=== PATIENT | female | born 1985 | race African-American/Black ===

== ENCOUNTER 2018-10-07 02:26 | Inpatient (IN) | payer OTHER ==
[2018-10-07] MEDS ORDERED: RINGERS SOLUTION,LACTATED 1,000 ML IV PRN ×2 (03:06→03:41)
[2018-10-07 03:17] LABS: APPEARANCE,URINE SLIGHTLY-CLOUDY; BILIRUBIN,URINE NEGATIVE (NEGATIVE); COLOR,URINE YELLOW; GLUCOSE, URINE NEGATIVE (NEGATIVE); KETONES,URINE NEGATIVE (NEGATIVE); LEUKOCYTE ESTERASE,URINE LARGE (NEGATIVE); NITRITE,URINE NEGATIVE (NEGATIVE); PROTEIN,URINE NEGATIVE (NEGATIVE); UROBILINOGEN,URINE NEGATIVE mg/dL (<2.0)
[2018-10-07 03:29] LABS: URINE AMPHETAMINES SCREEN NEGATIVE; URINE BARBITURATES SCREEN NEGATIVE; URINE BENZODIAZEPINES SCREEN NEGATIVE; URINE COCAINE SCREEN NEGATIVE; URINE METHADONE SCREEN NEGATIVE; URINE PHENCYCLIDINE SCREEN NEGATIVE
[2018-10-07 03:31] LABS: URINE MARIJUANA (THC) SCREEN UNCONFIRMED POSITIVE
[2018-10-07] MEDS ORDERED: BETAMET ACET/BETAMET NA INJ 6 MG/1 ML ONE (03:48)
[2018-10-07] MEDS ORDERED: PENICILLIN G-K 5 MILLION UNIT VIAL ONE ×2 (03:49→07:34)
[2018-10-07] MEDS ORDERED: PENICILLIN G POTASSIUM 5,000,000 UNIT in DEXTROSE 5%-WATER 100 ML IV ONE (03:50)
[2018-10-07] MEDS ORDERED: BETAMET ACET/BETAMET NA INJ 6 MG/1 ML IM ONE (03:50)
[2018-10-07 03:53] LABS: BACTERIA (WET MOUNT) 4+ BACTERIA SEEN; EPITHELIALS (WET MOUNT) 4+ EPITHELIALS SEEN; RBCS (WET MOUNT) 1+ RBCS SEEN; T.VAGINALIS (WET MOUNT) TRICHOMONAS SEEN; WBCS (WET MOUNT) 2+ WBCS SEEN; YEAST (WET MOUNT) NO YEAST SEEN
[2018-10-07] MEDS ORDERED: OXYTOCIN 10 UNIT/ML VIAL ONE (04:24)
[2018-10-07] MEDS ORDERED: MAGNESIUM SULFATE 4 GM/100 ML RTUPB IV ONE ×2 (04:24→05:00)
[2018-10-07] MEDS ORDERED: MISOPROSTOL 0.2 MG TABLET ONE (04:24)
[2018-10-07] MEDS ORDERED: OXYTOCIN/NORMAL SALINE 20 UNIT/1,000 ML RTUINJ ONE (04:25)
[2018-10-07] MEDS ORDERED: LIDOCAINE 1% INJ-PF (10 MG/ML) 30 ML SDV ONE (04:25)
[2018-10-07 04:35] LABS: HEMATOCRIT 38.3 % (36.0-47.0); HEMOGLOBIN 13.4 g/dL (12.0-15.5); MEAN CORPUSCULAR HEMOGLOBIN 29.4 pg (27.0-33.4); MEAN CORPUSCULAR HGB CONC 34.9 g/dL (32.0-36.0); MEAN CORPUSCULAR VOLUME 84 fl (80-97); PLATELET COUNT 172 10^3/uL (150-450); RED BLOOD COUNT 4.56 10^6/uL (3.72-5.28); RED CELL DISTRIBUTION WIDTH 13.9 % (11.5-14.0)
[2018-10-07 05:13] LABS: ABSOLUTE LYMPHOCYTES# (MANUAL) 2.3 10^3/uL (0.5-4.7); ABSOLUTE MONOCYTES # (MANUAL) 0.6 10^3/uL (0.1-1.4); ABSOLUTE NEUTROPHILS# (MANUAL) 18.1 10^3/uL (1.7-8.2); BASOPHILS % (MANUAL) 0 % (0-2); EOSINOPHILS % (MANUAL) 0 % (0-6); LYMPHOCYTES % (MANUAL) 11 % (13-45); MONOCYTES % (MANUAL) 3 % (3-13); PLATELET COMMENT ADEQUATE; RBC MORPHOLOGY COMMENT NORMO-CYTIC/CHROMIC; SEGMENTED NEUTROPHILS % (MAN) 86 % (42-78); TOTAL CELLS COUNTED 100
[2018-10-07 05:17] LABS: CHLAM PCR NOT DETECTED (NOT DETECT); GON PCR NOT DETECTED (NOT DETECT)
[2018-10-07] MEDS ORDERED: EPHEDRINE SULFATE INJ 50 MG/1 ML AMPULE ONE (05:25)
[2018-10-07] MEDS ORDERED: PHENYLEPHRINE HCL INJ/PF 10 MG/1 ML SDV ONE (05:25)
[2018-10-07] MEDS ORDERED: BUPIVACAINE HCL 0.25 % INJ/PF (2.5 MG/1 ML) 30 ML VIAL ONE (05:25)
[2018-10-07] MEDS ORDERED: FENTANYL/BUPIVACAINE/NS/PF 300 MCG/150 ML RTUINJ EPI ONE (05:25)
[2018-10-07] MEDS ORDERED: FENTANYL CITRATE INJ/PF 100 MCG/2 ML AMPUL ONE (05:25)
[2018-10-07] MEDS ORDERED: METRONIDAZOLE 500 MG/NS RTU 500 MG/100 ML RTUPB IV ONE ×2 (05:28→05:40)
--- NOTE | 2018-10-07 05:30 | RADIOLOGY REPORT (SQ) ---
Ultrasound OB limited on 10/07/2018 CLINICAL INDICATION: Contractions at 32 weeks six day gestation, evaluate cervical length COMPARISON: None FINDINGS: Limited sonographic imaging is performed throughout the pelvis by transabdominal approach only, both transverse and sagittal images are obtained. Single living intrauterine fetus is noted in cephalic presentation with the head low-lying in the pelvis. Positive cardiac activity is noted with a heart rate of 150 bpm. Placenta is anterior in location with no evidence of placenta previa or abruption. Normal amount of amniotic fluid is noted with amniotic fluid index of 10.6 cm. Estimated gestational age by measurements is an approximate 31 week four day gestation. Estimated weight is 3 lbs. 12 oz. +/- nine ounces which is at the 23rd percentile. No gross abnormality is noted on limited imaging. IMPRESSION: Single living intrauterine fetus in cephalic presentation.
--- NOTE | 2018-10-07 05:37 | Admission Physical ---
Datetime Report Generated by CPN: 10/07/2018 05:36 CURRENT ADMISSION Chief Complaint: Uterine Contractions Indication for Induction: Not Applicable Admit Impression : , Intrauterine ; Active Labor; Intact Membranes Admit Plan: Admit to Unit; Initiate Labor Protocol ALLERGIES Medication Allergies: No Latex: No Latex Allergies OBSTETRICAL HISTORY EDC: 11/26/2018 00:00 : 1 Para: 0 Term: 0 : 0 SAB: 0 IAB: 0 Livin Gestational Diabetes: No Rh Sensitization: No Incompetent Cervix: No KAUSHAL: No Infertility: No ART Treatment: No Uterine Anomaly: No IUGR: No Hx Previous C/S: No Macrosomia: No Hx Loss/Stillborn: No PIH: No Hx : No Placenta Previa/Abruption: No Depression/PP Depression: No PTL/PROM: Yes Post Hemorrhage: No Current Procedures: Ultrasound Obstetrical History Comments: g1-current , labor SEE RECORDS Alcohol: No Marijuana : Yes Marijuana Comments: denies but positive on urine Cocaine: No Other Illicit Drugs: No Cigarettes: Former Smoker. [id number] Cigarette Comments: patient denies, history states previous smoker and positive for marijuana MEDICAL HISTORY Diabetes: No Blood Transfusion: No Pulmonary Disease (Asthma, TB): No Breast Disease: No Hypertension: No Youth Corrections Officer Surgery: No Heart Disease: No Hosp/Surgery: No Autoimmune Disorder: No Anesthetic Complications: No Kidney Disease: No Abnormal Pap Smear: No Neuro/Epilepsy: No Psychiatric Disorders: No Other Medical Diseases: No Hepatitis/Liver Disease: No Significant Family History: No Varicosities/Phlebitis: No Trauma/Violence : No Thyroid Dysfunction: No INFECTIOUS HISTORY Gonorrhea: No Genital Herpes: No Chlamydia: No Tuberculosis: No Syphilis: No Hepatitis: No HIV/AIDS Exposure: No Rash or Viral Illness: No HPV: No Infectious History Comments: positive for trich on 10/07/18 PHYSICAL EXAM General: Normal HEENT: Normal Neurologic: Normal Thyroid: Normal Heart: Normal Lungs: Normal Breast: Normal Back: Normal Abdomen: Normal Genitourinary Exam: Normal Extremities: Normal DTRs: Normal Pelvic Type: Adequate Vital Signs: Reviewed; Within Normal Limits VAGINAL EXAM Dilatation: 3-4 Effacement: 100 MEMBRANES Membranes: Intact FETUS A EGA: 32.6 Monitoring: External US FHR- Baseline: 130s Variability: Moderate 6-25bpm Accelerations: 15X15 FHR Category: Category I Admit Comment: This 32 yo G1 presents to L_D c/o contractions. This pt is visiting family. She lives in [place]. On presentation, she was ana m q 2-3 minutes. She was diagnosed with TRICH tonight. Her UA is negative. Her cervix was /-3. She was given Betamethasone, MgS04, GBS prophylaxis, as well as tx for the STD. She is now ana m every 6 min, but very painful. I checked her at 0530 and she is now 3-4 cm with a bulging bag. I will admit pt for delivery. PLANS FOR LABOR AND DELIVERY Labor and Delivery: Placenta Request Pain Management: Epidural Feeding Preference: Breast Benefit of Breast Feed Discussed: Yes Circumcision: N/A INFORMED CONSENT Signature: with User ID: [email or web address]
[2018-10-07] MEDS ORDERED: [UNRECOGNIZED DRUG - OTHER] IV SCH (06:00)
[2018-10-07] MEDS ORDERED: METRONIDAZOLE IV SCH (06:00)
[2018-10-07] MEDS ORDERED: CONTAINER EMPTY IV SCH (06:00)
[2018-10-07] MEDS: PENICILLIN G POTASSIUM 2,500,000 UNIT in DEXTROSE 5%-WATER 50 ML IV SCH (07:54)
[2018-10-07] MEDS ORDERED: METRONIDAZOLE 500 MG TABLET ONE (09:55)
[2018-10-07] MEDS ORDERED: METRONIDAZOLE 500 MG TABLET PO ONE (10:00)
--- NOTE | 2018-10-07 11:34 | Warning Signs in Babies ---
VOD Warning Signs Datetime Report Generated by [facility]: 10/07/2018 11:34 VOD#608 -Warning Signs in Babies: Needs to be viewed. (10/07/2018 02:30:Nazario Patton RN)
--- NOTE | 2018-10-07 11:34 | Delivery Summary ---
Del Sum A-C Datetime Report Generated by CPN: 10/07/2018 11:34 DELIVERY PERSONNEL DELIVERY PERSONNEL: [id number] Delivery Doctor:: Maegan Novoa MD Labor and Delivery Nurse:: Nazario Patton RN Glue Mixer:: CLEOPATRA Haas Command And Control Systems Integrator:: Dr. Jeremías Barnes Nurse Practitioner:: FAIBOLA Joseph Nursery Nurse:: Ashley Bee Hydrogen Operator/COMMERCIAL TRAILER TRUCK DRIVER: Lubna Semar, FURNACE BRAZER Hydrogen Operator/COMMERCIAL TRAILER TRUCK DRIVER: Lubna Semar, FURNACE BRAZER MATERNAL INFORMATION Delivery Anesthesia: Epidural Medications After Delivery: Pitocin Bolus-Please Comment Meds After Delivery Comment: 20 units pitocin bolus following placenta delivery Estimated Blood Loss (ml): 200 Maternal Complications: Other Complication Details: labor, positive trich Provider Comments: Pt admitted for labor and progressed to 10 and SROM with clear fluid. NICU present at delivery. Epidural for pain control. With one push head delivered OA over intact perineum. Restituted LOT with spontaneous delivery. with spontaneous cry and allowed to stay on maternal abdomen for 1 minute of delayed cord clamping. Cord clamped x2 and cut by physician. taken to warmer. Routine cord blood collected. With gentle downward pressure intact placenta with 3VC delivered. Pitocin started. Fundus massaged to firm. No cervical lacerations. 1st degree laceration repaired with 3-0 vicryl and 3cc of 1% lidocaine used for local. Infant taken to the NICU in stable condition. EBL 200. Mom doing well when provider left room. Placenta sent for pathology. LABOR SUMMARY EDC: 11/26/2018 00:00 No. Babies in Womb: 1 Attempted: No Labor Anesthesia: Epidural LABOR INFORMATION Reason for Induction: Not Applicable Onset of Labor: 10/07/2018 03:23 Complete Dilatation: 10/07/2018 09:15 Oxytocin: N/A Group B Beta Strep: unknown-sent Antibiotics # of Doses: 2 Antibiotics Time of Last Dose: 0754 PCN Name of Antibiotic Given: PCN and Flagyl Steroids Given: Partial Course; < 24 Hours before Delivery Reason Steroids Not Administered: Imminent Delivery MEMBRANES Membranes Rupture Method: Spontaneous Rupture of Membranes: 10/07/2018 09:15 Length of Rupture (hr): 0.08 Amniotic Fluid Color: Clear Amniotic Fluid Amount: Large Amniotic Fluid Odor: None STAGES OF LABOR Stage 1 hr: 5 Stage 1 min: 52 Stage 2 hr: 0 Stage 2 min: 5 Stage 3 hr: 0 Stage 3 min: 4 Total Time in Labor hr: 6 Total Time in Labor min: 1 VAGINAL DELIVERY Episiotomy: None Laceration #1: Vaginal Laceration Extension #1: First Degree Laceration Repair: Yes Laceration Repair Note: 1st degree repaired with 3-0 vicryl in the usual fashion. Sponge Count Correct: Yes Sharps Count Correct: Yes CSECTION DELIVERY Primary Indication: N/A Other Primary Indication: n/a Secondary Indication: N/A Other Secondary Indication: n/a CSection Urgency: n/a CSection Incidence: N/A Labor: N/A Elective: N/A CSection Incision: N/A BABY A INFORMATION Infant Delivery Date/Time: 10/07/2018 09:20 Method of Delivery: Vaginal Born in Route : No : N/A Forceps: N/A Vacuum Extraction: N/A Shoulder Dystocia : No PRESENTATION/POSITION BABY A Presentation: Cephalic Cephalic Presentation: Vertex Vertex Position: Left Occipital Transverse Breech Presentation: N/A PLACENTA INFORMATION BABY A Placenta Delivery Time : 10/07/2018 09:24 Placenta Method of Delivery: Spontaneous Placenta Status: Delivered SCORES BABY A Heart Rate 1 min: >100 bpm Resp Effort 1 min: Good Cry Reflex Irritability 1 min: Cough or Sneeze or Pulls Away Muscle Tone 1 min: Active Motion Color 1 min: Blue/Pale Resuscitation Effort 1 min: Tactile Stimulation SCORE 1 MIN: 8 Heart Rate 5 min: >100 bpm Resp Effort 5 min: Good Cry Reflex Irritability 5 min: Cough or Sneeze or Pulls Away Muscle Tone 5 min: Active Motion Color 5 min: Blue/Pale Resuscitation Effort 5 min: Tactile Stimulation; Oxygen SCORE 5 MIN: 8 INFANT INFORMATION BABY A Gestational Age at Delivery: 32.6 Gestational Status: - <34 Weeks Outcome : Liveborn Condition : Stable Infant Sex: Female IDENTIFICATION BABY A Verification Date/Time: 10/07/2018 10:12 ID Band Number: [id number] Mother's Name Verified: Yes RN Verifying Infant: Dax Patton RN/ Zaida Frias RN WEIGHT/LENGTH BABY A Infant Birthweight (gm): 1770 Infant Weight (lb): 3 Infant Weight (oz): 14 Infant Length (in): 17.30 Infant Length (cm): 43.94 CORD INFORMATION BABY A No. Cord Vessels: 3 Nuchal Cord : N/A Cord Blood Taken: Yes-For Storage (Mom's Blood type +) Infant Suction: Mouth; Nose ASSESSMENT BABY A Infant Complications: None Physical Findings at Delivery: Other Physical Findings- Other: see nursery notes Respirations: Appears Normal Skin to Skin: No Skin to Skin Time (min): 0 Command And Control Systems Integrator/ALS Called : No Care By: Ashley Bee RN, Rose HICKS; Dr Barnes Transferred To: NICU BABY B INFORMATION : N/A SIGNATURES Signature: with User ID: [email or web address]
[2018-10-07] MEDS ORDERED: MEASLES,MUMPS&RUBELLA VACC/PF 0.5 ML VIAL SUBCUT PRN (11:52)
[2018-10-07] MEDS ORDERED: ZOLPIDEM TARTRATE 5 MG TABLET PO PRN (11:52)
[2018-10-07] MEDS ORDERED: DIPH/PERTUSS(ACELL)/TETANUS VAC/PF 0.5 ML SYR (>=10YO) IM PRN (11:52)
[2018-10-07] MEDS ORDERED: OXYTOCIN/NORMAL SALINE 1,000 ML IV PRN (11:52)
[2018-10-07] MEDS ORDERED: DIBUCAINE 1% OINTMENT 56 GM TP PRN (11:52)
[2018-10-07] MEDS ORDERED: ACETAMINOPHEN WITH CODEINE #3 TABLET PO PRN ×2 (11:52)
[2018-10-07] MEDS: IBUPROFEN 800 MG TABLET PO SCH ×2 (15:14→21:56)
[2018-10-07] MEDS: SENNOSIDES/DOCUSATE 8.6-50 MG 1 EACH TABLET PO SCH (20:29)
[2018-10-07] MEDS: FERROUS SULFATE 325 MG TABLET PO SCH (20:29)
[2018-10-07] MEDS: BENZOCAINE/MENTHOL AEROSOL SPRAY 56 ML TOP PRN (20:32)
[2018-10-08] MEDS: IBUPROFEN 800 MG TABLET PO SCH ×3 (05:12→22:18)
[2018-10-08 07:49] LABS: HEMATOCRIT 33.5 % (36.0-47.0); HEMOGLOBIN 11.6 g/dL (12.0-15.5); MEAN CORPUSCULAR HEMOGLOBIN 29.4 pg (27.0-33.4); MEAN CORPUSCULAR HGB CONC 34.7 g/dL (32.0-36.0); MEAN CORPUSCULAR VOLUME 85 fl (80-97); PLATELET COUNT 201 10^3/uL (150-450); RED BLOOD COUNT 3.94 10^6/uL (3.72-5.28); WHITE BLOOD COUNT 24.5 10^3/uL (4.0-10.5)
--- NOTE | 2018-10-08 09:03 | PDOC PROGRESS REPORT ---
Subjective-OB Progress Note for:: 10/08/18 Subjective: OOB in halls and nursery, pumping breasts, voiding Physical Exam (OB) Vital Signs: Temp Pulse Resp BP Pulse Ox 98.0 F 75 16 106/45 L 84 L 10/07/18 19:36 10/07/18 19:36 10/07/18 19:36 10/07/18 19:36 10/07/18 19:36 Intake & Output 10/07/18 10/08/18 10/09/18 06:59 06:59 06:59 Weight 82 kg - PIH/Pre-Eclampsia DTR's: 2 + Clonus: Negative Headache: Absent Epigastric Pain: No Visual Changes: No - Lochia Lochia Amount: Small 10-25 ml Lochia Color: Rubra/Red - Abdomen Description: Soft, Round Hernia Present: No Fundal Description: Firm Fundal Height: u/u - u/2 Objective-Diagnostic Laboratory: 10/08/18 07:00 10/08/18 07:00 WBC 24.5 H RBC 3.94 Hgb 11.6 L Hct 33.5 L MCV 85 MCH 29.4 MCHC 34.7 RDW 14.0 Plt Count 201 Assessment and Plan(PN) - Assessment and Plan (1) Marijuana abuse Is this a current diagnosis for this admission?: Yes (2) Trichomonal vaginitis during in third trimester Is this a current diagnosis for this admission?: Yes (3) labor in third trimester with delivery Qualifiers: Fetus number: single or unspecified fetus Qualified Code(s): O60.14X0 - labor third trimester with delivery third trimester, not applicable or unspecified Is this a current diagnosis for this admission?: Yes - Time Spent with Patient Time with patient: Less than 15 minutes Medications reviewed and adjusted accordingly: Yes - Disposition Anticipated Discharge: Home Within: within 24 hours
[2018-10-08] MEDS: PENICILLIN G POTASSIUM 2,500,000 UNIT in DEXTROSE 5%-WATER 50 ML IV SCH (09:27)
[2018-10-08] MEDS: DOCUSATE SODIUM 100 MG CAPSULE PO SCH ×2 (12:46→22:17)
[2018-10-08] MEDS: FERROUS SULFATE 325 MG TABLET PO SCH ×2 (12:47→22:17)
[2018-10-08] MEDS: SENNOSIDES/DOCUSATE 8.6-50 MG 1 EACH TABLET PO SCH (12:47)
[2018-10-08] MEDS: PRENATAL VITAMIN W DHA CAPSULE PO SCH (12:47)
[2018-10-09] MEDS: IBUPROFEN 800 MG TABLET PO SCH ×2 (05:05→14:17)
[2018-10-09 09:34] VITALS: BP 115/47
--- NOTE | 2018-10-09 10:27 | PDOC DISCHARGE SUMMARY ---
Final Diagnosis Discharge Date: 10/09/18 - Final Diagnosis (1) Normal vaginal delivery Is this a current diagnosis for this admission?: Yes (2) Obstetrical laceration, first degree Is this a current diagnosis for this admission?: Yes (3) labor in third trimester with delivery Is this a current diagnosis for this admission?: Yes (4) Trichomonal vaginitis during in third trimester Is this a current diagnosis for this admission?: Yes Discharge Data - Discharge Medication Prescriptions: Ibuprofen [Motrin 800 mg Tablet] 800 mg PO Q8HP PRN #60 tablet PRN Reason: Home Medications: Vits96/Iron Fum/Folic [ Tablet] 1 each PO DAILY 10/08/18 Ibuprofen [Motrin 800 mg Tablet] 800 mg PO Q8HP PRN #60 tablet 10/09/18 Reason(s) for Admission: Onset of Labor Procedures: NST Intrapartum Procedure(s): Spontaneous Vaginal Delivery Complication(s): Laceration-Vaginal Laceration-Degree: 1st - Diagnosis Test Laboratory: Temp Pulse Resp BP Pulse Ox 98.7 F 71 18 115/47 L 99 10/09/18 07:25 10/09/18 07:25 10/09/18 07:25 10/09/18 07:25 10/09/18 07:25 10/07/18 10/07/18 10/08/18 02:44 04:25 07:00 RBC 4.56 3.94 Hgb 13.4 11.6 L Hct 38.3 33.5 L Urine Opiates Screen NEGATIVE - Discharge information/Instructions Discharge Activity: Balance Activity w/Rest, Pelvic Rest Discharge Diet: Regular Disposition: HOME, SELF-CARE Follow up with: [facility] in: 4, Weeks
[2018-10-09] MEDS: FERROUS SULFATE 325 MG TABLET PO SCH (11:47)
[2018-10-09] MEDS: SENNOSIDES/DOCUSATE 8.6-50 MG 1 EACH TABLET PO SCH (11:47)
[2018-10-09] MEDS: DOCUSATE SODIUM 100 MG CAPSULE PO SCH (11:47)
[2018-10-09] MEDS: PRENATAL VITAMIN W DHA CAPSULE PO SCH (11:47)
[2018-10-09] MEDS: BENZOCAINE/MENTHOL AEROSOL SPRAY 56 ML TOP PRN (11:56)
[2018-10-10 08:41] LABS: HEPATITIS C VIRUS AB <0.1 s/co ratio (0.0-0.9)
== END 2018-10-09 15:20 | disposition home or self-care (01) | DRG 805 ==
LOC: LC 02:26 → LR 03:46 → OBSVTOIN 03:46 → 2S 12:40
PROVIDERS: ADMIT Obstetrics & Gynecology; ATTEND Obstetrics & Gynecology
PROC: 10E0XZZ Delivery of Products of Conception, External Approach (ICD-10-PCS; principal; 2018-10-07)
PROC: 0HQ9XZZ Repair Perineum Skin, External Approach (ICD-10-PCS; 2018-10-07)
DX: O98.32 Other infections with a predominantly sexual mode of transmission complicating childbirth (principal); O60.14X0 Preterm labor third trimester with preterm delivery third trimester, not applicable or unspecified; Z37.0 Single live birth; O99.324 Drug use complicating childbirth; F12.10 Cannabis abuse, uncomplicated; A59.9 Trichomoniasis, unspecified; O70.0 First degree perineal laceration during delivery; Z3A.32 32 weeks gestation of pregnancy; Z87.891 Personal history of nicotine dependence
CPT/HCPCS: 36415; 76815; 80307; 80349; 81001; 85025; 85027; 86592; 86803; 86804; 86850; 86900; 86901; 87077; 87081; 87210; 87491; 87591; 88307; 94760; 96372; G0480; J0702; J2370; J2540; J2590; J3010; J3475; J3490